=== PATIENT | female | born 1965 | race Caucasian/White ===

== ENCOUNTER 2018-03-15 09:59 | Day surgery (SDC) | payer BC ==
[2018-03-15] MEDS ORDERED: LIDOCAINE 1% MDV (10MG/ML) 20ML VIAL SQ ONE (10:00)
[2018-03-15] MEDS ORDERED: PROPOFOL 10 MG/ML VIAL IV ONE (10:00)
[2018-03-15] MEDS ORDERED: *PACU ONLY* KETAMINE HCL 10 MG/ML (20ML) VIAL IV ONE (10:00)
--- NOTE | 2018-03-16 08:50 | Operative Note ---
Dictated by Dr. Ammon Sanchez DATE OF SURGERY: 03/15/2018 PERFORMING PHYSICIAN: Dennis Tobar DO ASSISTING PHYSICIAN: Dr. Ammon Sanchez ANESTHESIA: Moderate sedation per [facility] anesthesia staff. INDICATIONS: This is a 52-year-old female who has not had a previous colonoscopy here for screening colonoscopy with average risk. DESCRIPTION OF PROCEDURE: The patient was seen in the preoperative area. Risks and benefits of the procedure including bleeding, infection, and perforation were discussed in detail with the patient. Consent for both anesthesia and the procedure was signed. The patient was then brought to the endoscopy suite where timeout was conducted confirming her name, date of , and procedure to be done as well as allergies. The patient was given ample time to ask any additional questions. The patient was placed on her left lateral side and monitored with blood pressure, pulse oximetry, and ECG. The patient was moderately sedated and a colonoscope was lubricated and inserted into the rectum after a thorough anorectal examination was done which showed no abnormalities. The scope was then advanced to the cecum where the appendiceal orifice and ileocecal valve were visualized and the terminal ileum was intubated with no abnormalities appreciated. Retroflexion was performed in the cecum with no abnormalities appreciated. The scope was then withdrawn with over a 6-minute withdrawal time with thorough suction and visualization with no abnormalities appreciated. The scope was then retroflexed within the rectum. I did not appreciate any abnormalities. The scope was withdrawn. The patient tolerated the procedure very well with minimal if any bleeding. FINDINGS: Normal terminal ileum and normal colon. RECOMMENDATIONS: Followup colonoscopy in 10 years due to average risk of colon cancer. As always, thank you for allowing me to participate in the care of your patient. CC: Shade HENAO
== END 2018-03-15 13:20 | disposition home or self-care (01) ==
LOC: HOP 09:59
PROVIDERS: ATTEND Internal Medicine Gastroenterology
DX: Z12.11 Encounter for screening for malignant neoplasm of colon (principal)
CPT/HCPCS: 00812; G0121